=== PATIENT | male | born 1995 | race Two or more races ===

== ENCOUNTER 2021-03-16 10:08 | Emergency (ER) | payer MEDICAID, OTHER ==
[~2021-03-16] VITALS: Ht 180.3 cm; Wt 97.5 kg
[2021-03-16 10:13] VITALS: BP 121/71
--- NOTE | 2021-03-16 10:21 | NUR ---
Patient ambulated to bed 11. RN evaluating the patient at bedside.
--- NOTE | 2021-03-16 10:45 | NUR ---
UA COLLECTED BEDSIDE
--- NOTE | 2021-03-16 10:45 | NUR ---
25 MALE WITH C/O EPIGASTRIC PAIN X4 DAYS AND, FEVER X 10 DAYS. LAST BM 2 DAYS AGO. PT STATES "HAD FEVER X10 DAYS THAT WAS AROUND 102 AND TODAY IS THE FIRST DAY HE DOES NOT HAVE A FEVER." STATES "EPIGASTRIC PAIN STARTED MONDAY AND IS BROUGHT ON BY DRINKING/SWALLOWING." PMH: JOSEIES AVA
--- NOTE | 2021-03-16 10:46 | NUR ---
Dr. Blood at pt bedside for futher evaluation.
[2021-03-16] MEDS ORDERED: NACL 0.9% 1,000 ML IV SCH (10:55)
[2021-03-16] MEDS ORDERED: ALUMINUM HYD/MAG/SIMETHICONE 30 ML, DICYCLOMINE HCL LIQUID 20 MG, LIDOCAINE VISCOUS 2% ... PO ONE ×3 (10:55)
[2021-03-16] MEDS ORDERED: LIDOCAINE VISCOUS 2% 20 ML UDC ONE (10:58)
--- NOTE | 2021-03-16 11:10 | NUR ---
XRAY BEDSIDE WITH PT
[2021-03-16] MEDS ORDERED: DICYCLOMINE HCL LIQUID 10 MG/5 ML UDC ONE (11:15)
[2021-03-16] MEDS ORDERED: ALUMINUM HYD/MAG/SIMETHICONE 30 ML UDC ONE (11:15)
[2021-03-16 11:38] LABS: BASOPHILS % (AUTO) 0.2 % (0.0-2.0); HEMATOCRIT 44.1 % (36-52); HEMOGLOBIN 15.5 g/dL (12.0-18.0); LYMPHOCYTES # (AUTO) 1.5 K/uL (2.0-11.5); LYMPHOCYTES % (AUTO) 14.3 % (20.5-51.1); MEAN CORPUSCULAR HEMOGLOBIN 31 pg (27-31); MEAN CORPUSCULAR HGB CONC 35 g/dL (33-37); MEAN CORPUSCULAR VOLUME 89.1 fL (80-94); MONOCYTES # (AUTO) 1.1 K/uL (0.8-1.0); MONOCYTES % (AUTO) 10.8 % (1.7-9.3); NEUTROPHILS # (AUTO) 7.9 K/uL (1.8-7.7); NEUTROPHILS % (AUTO) 74.7 % (42.2-75.2); PLATELET COUNT (AUTO) 282 K/uL (140-450); RED BLOOD CELL COUNT(AUTO) 4.95 MIL/uL (4.20-6.10); RED CELL DISTRIBUTION WIDTH 12.7 % (11.6-13.7); WHITE BLOOD COUNT (AUTO) 10.6 K/uL (4.8-10.8)
[2021-03-16 11:47] LABS: ALBUMIN 3.6 g/dL (3.4-5.0); ANION GAP 12.6 (8-16); CARBON DIOXIDE 26.3 mmol/L (21-32); POTASSIUM 3.9 mmol/L (3.5-5.1); TOTAL BILIRUBIN 0.5 mg/dL (0.0-1.0)
[2021-03-16] MEDS ORDERED: IBUP-2213 PO (12:54)
[2021-03-16 13:08] VITALS: BP 119/69
--- NOTE | 2021-03-16 13:08 | NUR ---
Patient discharged with v/s stable. Written and verbal after care instructions given and explained. Patient alert, oriented and verbalized understanding of instructions. Ambulatory with steady gait. All questions addressed prior to discharge. ID band removed. Patient advised to follow up with PMD. Rx of IBUPROFEN 600 MG PO TID PRN given. Patient educated on indication of medication including possible reaction and side effects. Opportunity to ask questions provided and answered.
== END 2021-03-16 13:06 | disposition home or self-care (01) ==
LOC: MED 10:08
DX: R10.13 Epigastric pain (principal); Z20.822 Contact with and (suspected) exposure to COVID-19; R50.9 Fever, unspecified; J02.9 Acute pharyngitis, unspecified; Z90.49 Acquired absence of other specified parts of digestive tract
CPT/HCPCS: 36415; 71045; 80053; 81002; 83690; 85025; 87426; 96360; 99284; J7030